=== PATIENT | male | born 1940 | race Caucasian/White ===

== ENCOUNTER → 2017-03-21 | Outpatient (CLI) | payer MEDICARE ==
[~2017-03-21] MED LIST: IOHEXOL 350 MG/ML 100ML IJ ONE; LOVA10TA54 PO; METF-372 PO; PRED-188 PO; READI-CAT 2 (BARIUM SULF)(VANILLA SMOOTHIE) 450ML ONE
[2017-03-21 09:15] VITALS: BP 113/61
[2017-03-21 10:40] VITALS: BP 125/69
[2017-03-21 12:14] LABS: Basophils # (auto) 0 uL; Basophils % (auto) 0.1 % (0.0-2.0); CONDITION Y; DEFINITIVE SEE PRINTOUT; Eosinophils # (auto) 0 uL; Eosinophils % (auto) 0.1 % (0.0-7.0); Hematocrit 37.7 % (41.0-53.0); Hemoglobin 11.9 g/dL (13.5-17.5); Lymphocytes % (auto) 8.8 % (10.0-50.0); Mean Corpuscular Hemoglobin 24.5 pg (28.0-32.0); Mean Corpuscular Hgb Conc. 31.7 g/dL (32.0-36.0); Mean Corpuscular Volume 77.2 fL (80.0-100.0); Monocytes # (auto) 0.7 uL; Monocytes % (auto) 5.8 % (0.0-12.0); Neutrophils # (auto) 9.7 uL; Neutrophils % (auto) 85.2 % (37.0-80.0); Platelet Count (auto) 374 10^3/uL (140-450); Red Cell Distribution Width 17.8 % (11.6-16.0); White Blood Cell 11.4 10^3/uL (4.4-10.8)
[2017-03-21 12:42] LABS: Albumin 2.8 g/dL (3.4-5.0); Alkaline Phosphatase 55 U/L (45-117); Anion Gap 9 (5-15); Aspartate Aminotransferase 9 U/L (15-37); BUN/Creatinine Ratio 38.4; Bilirubin, Direct < 0.1 mg/dL (0-0.2); Bilirubin, Total 0.3 mg/dL (0.2-1.0); Blood Urea Nitrogen 33 mg/dL (7-18); Calcium 8.8 mg/dL (8.5-10.1); Carbon Dioxide 24 mmol/L (21-32); Chloride 103 mmol/L (98-107); Cholesterol 157 mg/dL (< 200); GFR African American 111 mL/min; GFR Non-African American 92 mL/min; Glucose 210 mg/dL (74-106); HDL Cholesterol 52 mg/dL (40-59); LDL Cholesterol 89 mg/dL (< 100); Potassium 3.9 mmol/L (3.5-5.1); Sodium 136 mmol/L (136-145); Total Protein 6.5 g/dL (6.4-8.2); Triglycerides 117 mg/dL (< 150)
== END | disposition home or self-care (01) ==
LOC: Rad HDHVI 09:00
PROVIDERS: ATTEND Internal Medicine Cardiovascular Disease
DX: I70.0 Atherosclerosis of aorta (principal); J98.11 Atelectasis; I10 Essential (primary) hypertension; E78.00 Pure hypercholesterolemia, unspecified; K74.1 Hepatic sclerosis; E11.9 Type 2 diabetes mellitus without complications; R97.20 Elevated prostate specific antigen [PSA]; R53.81 Other malaise; E03.9 Hypothyroidism, unspecified; D64.9 Anemia, unspecified; E55.9 Vitamin D deficiency, unspecified; N39.0 Urinary tract infection, site not specified; N20.0 Calculus of kidney; N40.0 Benign prostatic hyperplasia without lower urinary tract symptoms; I31.3 Pericardial effusion (noninflammatory); Z90.49 Acquired absence of other specified parts of digestive tract
CPT/HCPCS: 36415; 74177; 80048; 80061; 80076; 82306; 82565; 83036; 84153; 84403; 84439; 84443; 85025; G0463; Q9967; 96374

== ENCOUNTER → 2017-03-23 | Outpatient (CLI) | payer MEDICARE ==
[~2017-03-23] MED LIST changes: -IOHEXOL 350 MG/ML 100ML IJ ONE; -READI-CAT 2 (BARIUM SULF)(VANILLA SMOOTHIE) 450ML ONE
[2017-03-23 11:50] LABS: Urine Bilirubin Negative (Negative); Urine Blood Negative /uL (Negative); Urine Color Yellow (Yellow); Urine Ketone Negative (Negative); Urine Nitrite Negative (Negative); Urine Urobilinogen Normal (Negative)
[2017-03-23 11:51] LABS: Urine Glucose 3+ mg/dL (Normal)
== END | disposition home or self-care (01) ==
LOC: LAB 08:39
PROVIDERS: ATTEND Internal Medicine Cardiovascular Disease
DX: Z73.3 Stress, not elsewhere classified (principal); E23.7 Disorder of pituitary gland, unspecified; E27.9 Disorder of adrenal gland, unspecified; N39.0 Urinary tract infection, site not specified
CPT/HCPCS: 81003; 82533; 87086

== ENCOUNTER → 2017-03-29 | Outpatient (CLI) | payer MEDICARE ==
[~2017-03-29] MED LIST changes: +CYANOCOBALAMIN (B-12) 1000 MCG/1 ML VIAL IM ONE; +CYANOCOBALAMIN (B-12) 1000 MCG/1 ML VIAL ONE; +MULTIPLE VIT 10 ML IV ONE; +MVI in SODIUM CHLORIDE 0.9% 1,010 ML ONE; +SODIUM CHLORIDE 0.9% 1,000 ML IVB ONE
[2017-03-29 16:47] LABS: Calcium 8.9 mg/dL (8.5-10.1); Magnesium 2.4 mg/dL (1.6-2.6); Potassium 4.1 mmol/L (3.5-5.1)
[2017-03-29 17:07] VITALS: BP 148/71
== END | disposition home or self-care (01) ==
LOC: CHF HDHVI 14:07
PROVIDERS: ATTEND Internal Medicine Cardiovascular Disease
DX: I10 Essential (primary) hypertension (principal); E83.42 Hypomagnesemia
CPT/HCPCS: 36415; 80048; 82962; 83735; 96365; 96366; 96372; G0463; J3411; J3420; J3475

== ENCOUNTER → 2017-04-12 | Outpatient (CLI) | payer MEDICARE ==
[~2017-04-12] MED LIST changes: -CYANOCOBALAMIN (B-12) 1000 MCG/1 ML VIAL IM ONE; -CYANOCOBALAMIN (B-12) 1000 MCG/1 ML VIAL ONE; -MULTIPLE VIT 10 ML IV ONE; -MVI in SODIUM CHLORIDE 0.9% 1,010 ML ONE; -SODIUM CHLORIDE 0.9% 1,000 ML IVB ONE
[2017-04-12 13:50] VITALS: BP 128/62
[2017-04-12 15:20] VITALS: BP 128/68
== END | disposition home or self-care (01) ==
LOC: CHF HDHVI 14:00
PROVIDERS: ATTEND Internal Medicine Cardiovascular Disease
DX: I95.1 Orthostatic hypotension (principal)
CPT/HCPCS: 82962; G0463

== ENCOUNTER → 2017-04-14 | Outpatient (CLI) | payer MEDICARE ==
[2017-04-14 14:00] VITALS: BP 117/63
[2017-04-14 14:30] VITALS: BP 122/66
[2017-04-14 16:58] LABS: Basophils # (auto) 0 uL; Basophils % (auto) 0.2 % (0.0-2.0); CONDITION Y; DEFINITIVE SEE PRINTOUT; Eosinophils # (auto) 0 uL; Eosinophils % (auto) 0.1 % (0.0-7.0); Hematocrit 35.4 % (41.0-53.0); Hemoglobin 11.4 g/dL (13.5-17.5); Lymphocytes % (auto) 13.6 % (10.0-50.0); Mean Corpuscular Hemoglobin 24.9 pg (28.0-32.0); Mean Corpuscular Hgb Conc. 32.2 g/dL (32.0-36.0); Mean Corpuscular Volume 77.3 fL (80.0-100.0); Mean Platelet Volume 8.2 fL (7.4-10.4); Monocytes # (auto) 0.4 uL; Monocytes % (auto) 5.7 % (0.0-12.0); Neutrophils % (auto) 80.4 % (37.0-80.0); Platelet Count (auto) 210 10^3/uL (140-450); Red Cell Distribution Width 19.1 % (11.6-16.0); White Blood Cell 7.5 10^3/uL (4.4-10.8)
[2017-04-14 17:12] LABS: Urine Bilirubin Negative (Negative); Urine Blood Negative /uL (Negative); Urine Ca Oxalate Crystal MANY (None Seen); Urine Color Yellow (Yellow); Urine Mucus FEW (None Seen); Urine Nitrite Negative (Negative); Urine RBC 2 /hpf (0 - 3); Urine Urobilinogen Normal (Negative); Urine pH 5.5 (5.0-8.0)
[2017-04-14 17:15] LABS: Potassium 3.8 mmol/L (3.5-5.1)
[2017-04-14 17:24] LABS: BUN/Creatinine Ratio 44.2; Calcium 8.4 mg/dL (8.5-10.1)
[2017-04-14 17:36] LABS: Burr Cells FEW; Ovalocytes FEW; Platelet Estimate Adequate
[2017-04-14 17:37] LABS: Anisocytosis Slight; Hypochromia Slight
[2017-04-14 17:39] LABS: Urine Glucose 2+ mg/dL (Normal); Urine Ketone 1+ (Negative)
== END | disposition home or self-care (01) ==
LOC: CHF HDHVI 13:57
PROVIDERS: ATTEND Internal Medicine Cardiovascular Disease
DX: I11.0 Hypertensive heart disease with heart failure (principal); I50.9 Heart failure, unspecified; I95.1 Orthostatic hypotension; G90.9 Disorder of the autonomic nervous system, unspecified; D64.9 Anemia, unspecified; E11.9 Type 2 diabetes mellitus without complications; R82.79 Other abnormal findings on microbiological examination of urine
CPT/HCPCS: 36415; 80048; 81001; 85025; 87086; G0463

== ENCOUNTER → 2017-05-09 | Outpatient (CLI) | payer MEDICARE ==
[2017-05-09 08:20] VITALS: BP 82/52
[2017-05-09 10:00] VITALS: BP 92/55
[2017-05-09 12:31] LABS: Basophils # (auto) 0 uL; Basophils % (auto) 0.4 % (0.0-2.0); CONDITION Y; DEFINITIVE SEE PRINTOUT; Eosinophils # (auto) 0 uL; Eosinophils % (auto) 0.3 % (0.0-7.0); Hematocrit 38.2 % (41.0-53.0); Hemoglobin 12.2 g/dL (13.5-17.5); Lymphocytes # (auto) 1.5 uL; Lymphocytes % (auto) 19.7 % (10.0-50.0); Mean Corpuscular Hemoglobin 24.9 pg (28.0-32.0); Mean Corpuscular Hgb Conc. 31.9 g/dL (32.0-36.0); Mean Corpuscular Volume 78.2 fL (80.0-100.0); Mean Platelet Volume 8.6 fL (7.4-10.4); Monocytes # (auto) 0.6 uL; Monocytes % (auto) 7.6 % (0.0-12.0); Neutrophils # (auto) 5.5 uL; Platelet Count (auto) 267 10^3/uL (140-450); Red Cell Distribution Width 19.9 % (11.6-16.0); White Blood Cell 7.7 10^3/uL (4.4-10.8)
[2017-05-09 12:51] LABS: BUN/Creatinine Ratio 25.3; Bilirubin, Total 0.4 mg/dL (0.2-1.0); Calcium 8.5 mg/dL (8.5-10.1); Potassium 3.4 mmol/L (3.5-5.1); Total Protein 6.8 g/dL (6.4-8.2)
[2017-05-09 17:32] VITALS: BP 142/71
== END | disposition home or self-care (01) ==
LOC: CHF HDHVI 08:33
PROVIDERS: ATTEND Internal Medicine Cardiovascular Disease
DX: I11.0 Hypertensive heart disease with heart failure (principal); I50.9 Heart failure, unspecified; D64.9 Anemia, unspecified; R97.20 Elevated prostate specific antigen [PSA]; I25.10 Atherosclerotic heart disease of native coronary artery without angina pectoris; E83.111 Hemochromatosis due to repeated red blood cell transfusions; R97.0 Elevated carcinoembryonic antigen [CEA]
CPT/HCPCS: 36415; 80053; 82378; 83735; 85025; G0463

== ENCOUNTER 2017-06-16 12:06 | Inpatient (IN) | payer MEDICARE ==
[~2017-06-16] VITALS: Ht 182.9 cm; Wt 62.6 kg
[~2017-06-16 12:06] MED LIST changes: -LOVA10TA54 PO
[2017-06-16] MEDS ORDERED: cloNIDine HCL 0.1 MG TAB PO ONE (13:00)
[2017-06-16 13:11] LABS: Basophils # (auto) 0.1 uL; Eosinophils # (auto) 0.1 uL; Hemoglobin 10.7 g/dL (13.5-17.5); Lymphocytes # (auto) 1.4 uL; Lymphocytes % (auto) 17.1 % (10.0-50.0); Mean Corpuscular Hemoglobin 24.8 pg (28.0-32.0); Neutrophils # (auto) 5.9 uL; White Blood Cell 8.2 10^3/uL (4.4-10.8)
[2017-06-16 13:12] LABS: Basophils % (auto) 1.3 % (0.0-2.0); Eosinophils % (auto) 1.5 % (0.0-7.0); Hematocrit 33.5 % (41.0-53.0); Mean Corpuscular Hgb Conc. 31.9 g/dL (32.0-36.0); Mean Corpuscular Volume 77.8 fL (80.0-100.0); Monocytes # (auto) 0.7 uL; Monocytes % (auto) 8.7 % (0.0-12.0); Neutrophils % (auto) 71.4 % (37.0-80.0); Nucleated Red Blood Cells % 0.1 %; Platelet Count (auto) 212 10^3/uL (140-450); Red Cell Distribution Width 17.7 % (11.8-14.3)
[2017-06-16 13:28] LABS: INR 1.03 (0.9-1.15); Partial Thromboplastin Time 21.6 sec (22.64-33.71); Prothrombin Time 11.2 sec (9.37-12.3)
[2017-06-16 13:33] LABS: Bilirubin, Total 0.4 mg/dL (0.2-1.0); Calcium 8.1 mg/dL (8.5-10.1); Magnesium 2.1 mg/dL (1.6-2.6); Potassium 3.4 mmol/L (3.5-5.1); Total Protein 6.6 g/dL (6.4-8.2)
[2017-06-16] MEDS ORDERED: LABETALOL HCL 5 MG/ML 4ML SYRINGE IV PRN (13:45)
[2017-06-16] MEDS ORDERED: SODIUM CHLORIDE 0.9% 1,000 ML IV SCH (13:45)
[2017-06-16] MEDS ORDERED: CLOPIDOGREL BISULFATE 75 MG TAB PO ONE (13:45)
[2017-06-16 14:37] LABS: Cholesterol 176 mg/dL (< 200); HDL Cholesterol 34 mg/dL (40-59); LDL Cholesterol 136 mg/dL (< 100); Triglycerides 117 mg/dL (< 150)
[2017-06-16] MEDS ORDERED: LORazepam 2MG/ML-1ML VIAL IV ONE ×2 (15:35→15:45)
[2017-06-16] MEDS ORDERED: LORazepam 2MG/ML-1ML VIAL ONE (15:35)
[2017-06-16] MEDS ORDERED: NITROGLYCERIN 0.4 MG SL TAB SL PRN (16:30)
[2017-06-16] MEDS ORDERED: DEXTROSE (50%) 50ML SYRG IV PRN (16:30)
[2017-06-16] MEDS ORDERED: MORPHINE SULF INJ 2 MG/ML SYRINGE 1ML IV PRN (16:30)
[2017-06-16] MEDS ORDERED: ASPirin 81 mg TAB PO ONE (16:45)
[2017-06-16] MEDS: metFORMIN HYDROCHLORIDE 500 MG TAB PO SCH (17:45)
[2017-06-16] MEDS: InsuLIN REG 1unit/0.01ml Soln (100units/ml) SC SCH ×2 (17:45→21:44)
[2017-06-16] MEDS: ACCU-CHEK COMFORT CURVE STRIP VI SCH ×2 (17:45→21:44)
[2017-06-16 18:06] LABS: Temperature: 22.4 C (20.0-25.0)
[2017-06-16 20:15] VITALS: BP 130/74
[2017-06-16] MEDS: ATORVASTATIN 20 MG TAB PO SCH (21:44)
[2017-06-16 22:00] VITALS: BP 130/74
[2017-06-17] MEDS ORDERED: CLOP75TA28 PO (01:47)
[2017-06-17 04:55] VITALS: BP 144/81
[2017-06-17] MEDS: InsuLIN REG 1unit/0.01ml Soln (100units/ml) SC SCH ×4 (06:08→22:40)
[2017-06-17] MEDS: ACCU-CHEK COMFORT CURVE STRIP VI SCH ×4 (06:08→22:40)
[2017-06-17] MEDS: metFORMIN HYDROCHLORIDE 500 MG TAB PO SCH ×2 (07:00→17:11)
[2017-06-17 09:00] VITALS: BP 161/85
[2017-06-17] MEDS: CLOPIDOGREL BISULFATE 75 MG TAB PO SCH ×2 (10:00→10:30)
[2017-06-17] MEDS: ASPirin 81 mg TAB PO SCH (10:30)
[2017-06-17 12:50] VITALS: BP 133/86
[2017-06-17 16:39] VITALS: BP 126/68
[2017-06-17 20:37] VITALS: BP 143/78
[2017-06-17] MEDS: ATORVASTATIN 20 MG TAB PO SCH (22:42)
[2017-06-18 04:31] VITALS: BP 137/65
[2017-06-18] MEDS: InsuLIN REG 1unit/0.01ml Soln (100units/ml) SC SCH ×4 (06:24→22:35)
[2017-06-18] MEDS: ACCU-CHEK COMFORT CURVE STRIP VI SCH ×4 (06:24→22:35)
[2017-06-18] MEDS: metFORMIN HYDROCHLORIDE 500 MG TAB PO SCH ×2 (06:25→16:51)
[2017-06-18 06:43] LABS: Basophils # (auto) 0.1 uL; Basophils % (auto) 0.7 % (0.0-2.0); Eosinophils # (auto) 0.2 uL; Eosinophils % (auto) 2.2 % (0.0-7.0); Hematocrit 34.8 % (41.0-53.0); Hemoglobin 11.1 g/dL (13.5-17.5); Lymphocytes # (auto) 1.3 uL; Lymphocytes % (auto) 18.2 % (10.0-50.0); Mean Corpuscular Hemoglobin 24.9 pg (28.0-32.0); Mean Corpuscular Hgb Conc. 31.9 g/dL (32.0-36.0); Mean Corpuscular Volume 78.2 fL (80.0-100.0); Monocytes # (auto) 0.8 uL; Monocytes % (auto) 11.3 % (0.0-12.0); Neutrophils % (auto) 67.6 % (37.0-80.0); Platelet Count (auto) 215 10^3/uL (140-450); Red Cell Distribution Width 17.7 % (11.8-14.3); White Blood Cell 7.3 10^3/uL (4.4-10.8)
[2017-06-18 07:05] LABS: Albumin 2.7 g/dL (3.4-5.0); Potassium 3.6 mmol/L (3.5-5.1)
[2017-06-18 07:07] LABS: BUN/Creatinine Ratio 18.2
[2017-06-18 07:10] LABS: Bilirubin, Total 0.5 mg/dL (0.2-1.0); Total Protein 6.5 g/dL (6.4-8.2)
[2017-06-18 09:00] VITALS: BP 142/65
[2017-06-18] MEDS: CLOPIDOGREL BISULFATE 75 MG TAB PO SCH ×2 (10:00→10:19)
[2017-06-18] MEDS: ASPirin 81 mg TAB PO SCH (10:19)
[2017-06-18] MEDS: FLUDROCORTISONE ACETATE 0.1 MG TAB PO SCH (12:07)
[2017-06-18 13:00] VITALS: BP 140/76
[2017-06-18 17:00] VITALS: BP 140/80
[2017-06-18 22:00] VITALS: BP 138/66
[2017-06-18] MEDS: ATORVASTATIN 20 MG TAB PO SCH (22:34)
[2017-06-19 04:33] VITALS: BP 134/66
[2017-06-19] MEDS: InsuLIN REG 1unit/0.01ml Soln (100units/ml) SC SCH ×4 (06:32→21:55)
[2017-06-19] MEDS: metFORMIN HYDROCHLORIDE 500 MG TAB PO SCH ×2 (06:32→18:00)
[2017-06-19] MEDS: ACCU-CHEK COMFORT CURVE STRIP VI SCH ×4 (06:32→21:55)
[2017-06-19 09:00] VITALS: BP 148/85
[2017-06-19] MEDS: ASPirin 81 mg TAB PO SCH (10:24)
[2017-06-19] MEDS: FLUDROCORTISONE ACETATE 0.1 MG TAB PO SCH (10:25)
[2017-06-19] MEDS: CLOPIDOGREL BISULFATE 75 MG TAB PO SCH (10:28)
[2017-06-19 13:00] VITALS: BP 124/60
[2017-06-19 17:00] VITALS: BP 129/77
[2017-06-19 22:00] VITALS: BP 117/61
[2017-06-19] MEDS: ATORVASTATIN 20 MG TAB PO SCH (22:06)
[2017-06-20 05:16] VITALS: BP 117/65
[2017-06-20] MEDS: metFORMIN HYDROCHLORIDE 500 MG TAB PO SCH (06:44)
[2017-06-20] MEDS: InsuLIN REG 1unit/0.01ml Soln (100units/ml) SC SCH ×2 (06:45→11:30)
[2017-06-20] MEDS: ACCU-CHEK COMFORT CURVE STRIP VI SCH ×2 (06:48→11:30)
[2017-06-20 08:18] VITALS: BP 133/66
[2017-06-20] MEDS: ASPirin 81 mg TAB PO SCH (10:17)
[2017-06-20] MEDS: CLOPIDOGREL BISULFATE 75 MG TAB PO SCH (10:17)
[2017-06-20] MEDS: FLUDROCORTISONE ACETATE 0.1 MG TAB PO SCH (10:17)
[2017-06-20 11:56] VITALS: BP 122/74
== END 2017-06-20 17:23 | disposition home health service (06) | DRG 64 ==
LOC: EDBD 12:06 → ER 12:06 → TELE 12:07 → TELE-CENTR 20:00 → CENTRAL 06-20 07:20
PROVIDERS: ADMIT Internal Medicine Cardiovascular Disease; ATTEND Internal Medicine Cardiovascular Disease
DX: I63.9 Cerebral infarction, unspecified (principal); E43 Unspecified severe protein-calorie malnutrition; G81.94 Hemiplegia, unspecified affecting left nondominant side; I95.1 Orthostatic hypotension
CPT/HCPCS: 36415; 70450; 70551; 71010; 80053; 80061; 82607; 82746; 82962; 83735; 84439; 84443; 85025; 85610; 85730; 87081; 93005; 93306; 93886; 96360; 96361; 97116; 97163; 97530; 99291; J1815

== ENCOUNTER 2017-06-27 11:35 | Inpatient (IN) | payer MEDICARE ==
[~2017-06-27] VITALS: Ht 182.9 cm; Wt 59.3 kg
[~2017-06-27 11:35] MED LIST changes: +CLOP75TA28 PO
[2017-06-27] MEDS ORDERED: SODIUM CHLORIDE 0.9% 1,000 ML IVB ONE (12:35)
[2017-06-27 13:14] LABS: Basophils # (auto) 0.1 uL; Eosinophils # (auto) 0.2 uL; Eosinophils % (auto) 2.4 % (0.0-7.0); Hemoglobin 11.3 g/dL (13.5-17.5); Lymphocytes # (auto) 1.2 uL; Monocytes # (auto) 0.7 uL; Nucleated Red Blood Cells % 0.1 %; White Blood Cell 7.3 10^3/uL (4.4-10.8)
[2017-06-27 13:17] LABS: Basophils % (auto) 0.8 % (0.0-2.0); Hematocrit 35.6 % (41.0-53.0); Lymphocytes % (auto) 16.4 % (10.0-50.0); Mean Corpuscular Hemoglobin 24.8 pg (28.0-32.0); Mean Corpuscular Hgb Conc. 31.7 g/dL (32.0-36.0); Mean Corpuscular Volume 78.3 fL (80.0-100.0); Neutrophils # (auto) 5.2 uL; Neutrophils % (auto) 71.4 % (37.0-80.0); Platelet Count (auto) 258 10^3/uL (140-450); Red Blood Cells 4.55 10^6/uL (4.5-5.90); Red Cell Distribution Width 16.9 % (11.8-14.3)
[2017-06-27 13:32] LABS: Alanine Aminotransferase 13 U/L (16-61); Albumin 3.1 g/dL (3.4-5.0); Alkaline Phosphatase 81 U/L (45-117); Anion Gap 10 (5-15); Aspartate Aminotransferase 11 U/L (15-37); BUN/Creatinine Ratio 27.3; Bilirubin, Total 0.5 mg/dL (0.2-1.0); Blood Urea Nitrogen 18 mg/dL (7-18); Calcium 8.2 mg/dL (8.5-10.1); Carbon Dioxide 21 mmol/L (21-32); Chloride 109 mmol/L (98-107); GFR African American 151 mL/min; GFR Non-African American 124 mL/min; Glucose 85 mg/dL (74-106); Magnesium 2.2 mg/dL (1.6-2.6); Sodium 140 mmol/L (136-145); Total Protein 7.4 g/dL (6.4-8.2)
[2017-06-27] MEDS ORDERED: NITROGLYCERIN 0.4 MG SL TAB SL PRN (14:15)
[2017-06-27] MEDS ORDERED: HYDROcodone-ACET 5/325MG TAB PO PRN (14:15)
[2017-06-27] MEDS ORDERED: MORPHINE SULFATE 10 MG/ML INJ 1ML SDV IV PRN ×2 (14:15)
[2017-06-27] MEDS ORDERED: ONDANSETRON HCL 4 MG/2 ML VIAL IV PRN (14:15)
[2017-06-27] MEDS ORDERED: DEXTROSE (50%) 50ML SYRG IV PRN (14:15)
[2017-06-27] MEDS: SODIUM CHLORIDE 0.9% 1,000 ML IV SCH (14:46)
[2017-06-27] MEDS: InsuLIN REG 1unit/0.01ml Soln (100units/ml) SC SCH ×2 (17:00→21:52)
[2017-06-27] MEDS: ACCU-CHEK COMFORT CURVE STRIP VI SCH ×2 (17:00→21:53)
[2017-06-27 17:32] VITALS: BP 154/75
[2017-06-27 20:00] VITALS: BP 122/57
[2017-06-27 22:00] VITALS: BP 122/57
[2017-06-28 05:00] VITALS: BP 123/65
[2017-06-28] MEDS: SODIUM CHLORIDE 0.9% 1,000 ML IV SCH ×2 (05:07→16:55)
[2017-06-28 06:14] LABS: Basophils # (auto) 0.1 uL; Eosinophils # (auto) 0.2 uL; Mean Corpuscular Volume 77.5 fL (80.0-100.0); Neutrophils # (auto) 3.7 uL
[2017-06-28 06:17] LABS: Basophils % (auto) 1.2 % (0.0-2.0); Eosinophils % (auto) 3.2 % (0.0-7.0); Hematocrit 34.4 % (41.0-53.0); Lymphocytes # (auto) 1.1 uL; Lymphocytes % (auto) 19.1 % (10.0-50.0); Mean Corpuscular Hemoglobin 24.8 pg (28.0-32.0); Monocytes # (auto) 0.8 uL; Monocytes % (auto) 13.1 % (0.0-12.0); Neutrophils % (auto) 63.4 % (37.0-80.0); Nucleated Red Blood Cells % 0.2 %; Platelet Count (auto) 260 10^3/uL (140-450); Red Blood Cells 4.44 10^6/uL (4.5-5.90); Red Cell Distribution Width 17.1 % (11.8-14.3); White Blood Cell 5.8 10^3/uL (4.4-10.8)
[2017-06-28 06:26] LABS: Potassium 3.9 mmol/L (3.5-5.1)
[2017-06-28 06:30] LABS: BUN/Creatinine Ratio 29.3
[2017-06-28] MEDS: InsuLIN REG 1unit/0.01ml Soln (100units/ml) SC SCH ×4 (06:49→22:00)
[2017-06-28] MEDS: ACCU-CHEK COMFORT CURVE STRIP VI SCH ×4 (06:49→22:27)
[2017-06-28 08:00] VITALS: BP 155/89
[2017-06-28 09:00] VITALS: BP 155/89
[2017-06-28] MEDS: predniSONE 20 MG TAB PO SCH (09:30)
[2017-06-28] MEDS: CLOPIDOGREL BISULFATE 75 MG TAB PO SCH (09:31)
[2017-06-28] MEDS: FLUDROCORTISONE ACETATE 0.1 MG TAB PO SCH (09:31)
[2017-06-28 13:00] VITALS: BP 152/83
[2017-06-28 17:00] VITALS: BP 136/74
[2017-06-28 17:59] LABS: Urine Bacteria NONE SEEN /hpf (None Seen); Urine Blood Negative /uL (Negative); Urine Mucus FEW (None Seen); Urine WBC 1 /hpf (0 - 3)
[2017-06-28] MEDS: HALOPERIDOL LACTATE 5 MG/ML INJ VIAL IM PRN (22:27)
[2017-06-29] MEDS ORDERED: diphenhdrAMINE HCL 50 MG/1 ML VL IM ONE (03:00)
[2017-06-29] MEDS ORDERED: LORazepam 2MG/ML-1ML VIAL IM ONE (03:00)
[2017-06-29 05:39] VITALS: BP 126/66
[2017-06-29] MEDS: InsuLIN REG 1unit/0.01ml Soln (100units/ml) SC SCH ×4 (07:00→22:08)
[2017-06-29] MEDS: ACCU-CHEK COMFORT CURVE STRIP VI SCH ×4 (07:00→22:08)
[2017-06-29 08:00] VITALS: BP 126/66
[2017-06-29] MEDS: SODIUM CHLORIDE 0.9% 1,000 ML IV SCH ×2 (08:00→19:35)
[2017-06-29 09:00] VITALS: BP 110/62
[2017-06-29] MEDS: CLOPIDOGREL BISULFATE 75 MG TAB PO SCH (10:18)
[2017-06-29] MEDS: predniSONE 20 MG TAB PO SCH (10:18)
[2017-06-29] MEDS: FLUDROCORTISONE ACETATE 0.1 MG TAB PO SCH (10:18)
[2017-06-29 13:00] VITALS: BP 164/80
[2017-06-29] MEDS ORDERED: DEXAMETHASONE 4 MG TAB PO ONE (15:00)
[2017-06-29 17:00] VITALS: BP 133/63
[2017-06-29] MEDS: Boost Glucose Control 8 Ounces PO SCH (18:00)
[2017-06-29] MEDS: DEXAMETHASONE 0.5MG/5ML ORAL ELIX PO SCH (19:01)
[2017-06-29 21:43] VITALS: BP 123/56
[2017-06-30 05:29] VITALS: BP 127/69
[2017-06-30] MEDS: ACCU-CHEK COMFORT CURVE STRIP VI SCH ×4 (06:31→22:11)
[2017-06-30] MEDS: InsuLIN REG 1unit/0.01ml Soln (100units/ml) SC SCH ×4 (06:32→22:00)
[2017-06-30] MEDS: DEXAMETHASONE 0.5MG/5ML ORAL ELIX PO SCH ×2 (08:00→18:00)
[2017-06-30 08:54] VITALS: BP 141/72
[2017-06-30] MEDS: SODIUM CHLORIDE 0.9% 1,000 ML IV SCH ×2 (08:55→22:11)
[2017-06-30] MEDS: CLOPIDOGREL BISULFATE 75 MG TAB PO SCH (09:39)
[2017-06-30] MEDS: predniSONE 20 MG TAB PO SCH (09:40)
[2017-06-30] MEDS: FLUDROCORTISONE ACETATE 0.1 MG TAB PO SCH (09:40)
[2017-06-30] MEDS: Boost Glucose Control 8 Ounces PO SCH ×2 (10:38→18:00)
[2017-06-30 13:24] VITALS: BP 133/65
[2017-06-30 16:38] VITALS: BP 140/67
[2017-06-30] MEDS: HALOPERIDOL LACTATE 5 MG/ML INJ VIAL IM PRN (17:12)
[2017-06-30 22:28] VITALS: BP 127/71
[2017-07-01 04:00] VITALS: BP 123/76
[2017-07-01] MEDS: ACCU-CHEK COMFORT CURVE STRIP VI SCH ×4 (06:39→21:12)
[2017-07-01] MEDS: InsuLIN REG 1unit/0.01ml Soln (100units/ml) SC SCH ×4 (06:39→21:55)
[2017-07-01] MEDS: DEXAMETHASONE 0.5MG/5ML ORAL ELIX PO SCH ×2 (08:25→17:45)
[2017-07-01] MEDS: Boost Glucose Control 8 Ounces PO SCH ×2 (08:25→17:45)
[2017-07-01 09:00] VITALS: BP 145/82
[2017-07-01] MEDS: FLUDROCORTISONE ACETATE 0.1 MG TAB PO SCH (10:51)
[2017-07-01] MEDS: CLOPIDOGREL BISULFATE 75 MG TAB PO SCH (10:51)
[2017-07-01] MEDS: predniSONE 20 MG TAB PO SCH (10:51)
[2017-07-01] MEDS: SODIUM CHLORIDE 0.9% 1,000 ML IV SCH (11:35)
[2017-07-01 13:00] VITALS: BP 121/64
[2017-07-01 16:35] VITALS: BP 125/70
[2017-07-01] MEDS: HALOPERIDOL LACTATE 5 MG/ML INJ VIAL IM PRN (21:06)
[2017-07-01 22:00] VITALS: BP 135/71
[2017-07-02] MEDS: SODIUM CHLORIDE 0.9% 1,000 ML IV SCH ×2 (00:55→14:05)
[2017-07-02 05:00] VITALS: BP 149/87
[2017-07-02] MEDS: InsuLIN REG 1unit/0.01ml Soln (100units/ml) SC SCH ×4 (05:22→21:24)
[2017-07-02] MEDS: ACCU-CHEK COMFORT CURVE STRIP VI SCH ×4 (05:22→21:24)
[2017-07-02 08:00] VITALS: BP 146/64
[2017-07-02] MEDS: Boost Glucose Control 8 Ounces PO SCH ×2 (08:00→18:08)
[2017-07-02 08:30] VITALS: BP 150/83
[2017-07-02] MEDS: CLOPIDOGREL BISULFATE 75 MG TAB PO SCH (11:39)
[2017-07-02] MEDS: FLUDROCORTISONE ACETATE 0.1 MG TAB PO SCH (11:39)
[2017-07-02] MEDS: predniSONE 20 MG TAB PO SCH (11:39)
[2017-07-02] MEDS: DEXAMETHASONE 0.5MG/5ML ORAL ELIX PO SCH ×2 (11:40→18:00)
[2017-07-02 12:30] VITALS: BP 142/84
[2017-07-02 17:00] VITALS: BP 144/99
[2017-07-02 21:54] VITALS: BP 145/90
[2017-07-02 21:57] LABS: Urine Bacteria NONE SEEN /hpf (None Seen); Urine Blood Negative /uL (Negative); Urine Mucus FEW (None Seen); Urine Specific Gravity 1.035 (1.001-1.035); Urine WBC 2 /hpf (0 - 3)
[2017-07-03] MEDS: SODIUM CHLORIDE 0.9% 1,000 ML IV SCH ×2 (03:35→16:55)
[2017-07-03] MEDS: HALOPERIDOL LACTATE 5 MG/ML INJ VIAL IM PRN (03:40)
[2017-07-03 05:00] VITALS: BP 152/84
[2017-07-03] MEDS: ACCU-CHEK COMFORT CURVE STRIP VI SCH ×4 (06:00→22:00)
[2017-07-03] MEDS: InsuLIN REG 1unit/0.01ml Soln (100units/ml) SC SCH ×4 (06:00→22:00)
[2017-07-03 06:30] LABS: Basophils # (auto) 0 uL; Eosinophils # (auto) 0 uL; Eosinophils % (auto) 0.3 % (0.0-7.0); Hemoglobin 10.7 g/dL (13.5-17.5); Mean Corpuscular Hemoglobin 24.5 pg (28.0-32.0); Monocytes # (auto) 0.8 uL; Neutrophils # (auto) 5.6 uL
[2017-07-03 06:34] LABS: Basophils % (auto) 0.5 % (0.0-2.0); Hematocrit 33.3 % (41.0-53.0); Lymphocytes # (auto) 1.5 uL; Lymphocytes % (auto) 18.4 % (10.0-50.0); Mean Corpuscular Volume 76.3 fL (80.0-100.0); Monocytes % (auto) 10.1 % (0.0-12.0); Neutrophils % (auto) 70.7 % (37.0-80.0); Platelet Count (auto) 328 10^3/uL (140-450); Red Blood Cells 4.36 10^6/uL (4.5-5.90); Red Cell Distribution Width 16.9 % (11.8-14.3)
[2017-07-03 07:02] LABS: Albumin 2.8 g/dL (3.4-5.0); Bilirubin, Total 0.6 mg/dL (0.2-1.0); Calcium 8.4 mg/dL (8.5-10.1); Potassium 3.3 mmol/L (3.5-5.1); Total Protein 6.9 g/dL (6.4-8.2)
[2017-07-03] MEDS: Boost Glucose Control 8 Ounces PO SCH ×2 (08:29→17:24)
[2017-07-03] MEDS: DEXAMETHASONE 0.5MG/5ML ORAL ELIX PO SCH ×2 (08:29→17:24)
[2017-07-03 09:00] VITALS: BP_SYST 132; BP_SYST 153; BP_DIAS 67; BP_DIAS 99
[2017-07-03] MEDS: CLOPIDOGREL BISULFATE 75 MG TAB PO SCH (09:45)
[2017-07-03] MEDS: predniSONE 20 MG TAB PO SCH (09:45)
[2017-07-03] MEDS: FLUDROCORTISONE ACETATE 0.1 MG TAB PO SCH (09:46)
[2017-07-03] MEDS ORDERED: GADOPENTETATE DIMEGLUMINE (10MMOL/20 ML) VIAL IV ONE (11:15)
[2017-07-03 21:30] VITALS: BP 150/91
[2017-07-04] MEDS: HALOPERIDOL LACTATE 5 MG/ML INJ VIAL IM PRN (01:42)
[2017-07-04] MEDS: SODIUM CHLORIDE 0.9% 1,000 ML IV SCH ×2 (02:48→19:35)
[2017-07-04 05:00] VITALS: BP 147/85
[2017-07-04] MEDS: InsuLIN REG 1unit/0.01ml Soln (100units/ml) SC SCH ×4 (06:22→22:00)
[2017-07-04] MEDS: ACCU-CHEK COMFORT CURVE STRIP VI SCH ×4 (06:22→22:23)
[2017-07-04 08:00] VITALS: BP 155/91
[2017-07-04] MEDS: Boost Glucose Control 8 Ounces PO SCH ×2 (08:19→17:46)
[2017-07-04] MEDS: DEXAMETHASONE 0.5MG/5ML ORAL ELIX PO SCH ×2 (08:44→17:46)
[2017-07-04 09:00] VITALS: BP 155/91
[2017-07-04] MEDS: FLUDROCORTISONE ACETATE 0.1 MG TAB PO SCH (10:25)
[2017-07-04] MEDS: predniSONE 20 MG TAB PO SCH (10:26)
[2017-07-04] MEDS: CLOPIDOGREL BISULFATE 75 MG TAB PO SCH (10:26)
[2017-07-04 12:48] VITALS: BP 141/75
[2017-07-04 16:51] VITALS: BP 147/86
[2017-07-04 22:00] VITALS: BP 139/78
[2017-07-05 05:00] VITALS: BP 154/80
[2017-07-05] MEDS: ACCU-CHEK COMFORT CURVE STRIP VI SCH ×4 (06:42→22:00)
[2017-07-05] MEDS: InsuLIN REG 1unit/0.01ml Soln (100units/ml) SC SCH ×4 (06:42→22:00)
[2017-07-05] MEDS: SODIUM CHLORIDE 0.9% 1,000 ML IV SCH ×2 (08:55→22:15)
[2017-07-05 09:00] VITALS: BP 121/70
[2017-07-05] MEDS: predniSONE 20 MG TAB PO SCH (09:02)
[2017-07-05] MEDS: CLOPIDOGREL BISULFATE 75 MG TAB PO SCH (09:02)
[2017-07-05] MEDS: FLUDROCORTISONE ACETATE 0.1 MG TAB PO SCH (09:02)
[2017-07-05] MEDS: DEXAMETHASONE 0.5MG/5ML ORAL ELIX PO SCH ×2 (09:03→17:25)
[2017-07-05] MEDS: Boost Glucose Control 8 Ounces PO SCH ×2 (09:03→18:11)
[2017-07-05 13:00] VITALS: BP 120/76
[2017-07-05 18:09] VITALS: BP 141/77
[2017-07-05 21:45] VITALS: BP 126/60
[2017-07-06] VITALS (7 sets, daily range): BP systolic 123–155; BP diastolic 63–94
[2017-07-06] MEDS: ACCU-CHEK COMFORT CURVE STRIP VI SCH ×4 (06:16→22:00)
[2017-07-06] MEDS: InsuLIN REG 1unit/0.01ml Soln (100units/ml) SC SCH ×4 (06:20→22:00)
[2017-07-06] MEDS: DEXAMETHASONE 0.5MG/5ML ORAL ELIX PO SCH ×2 (08:53→17:36)
[2017-07-06] MEDS: Boost Glucose Control 8 Ounces PO SCH ×2 (08:53→17:36)
[2017-07-06] MEDS: FLUDROCORTISONE ACETATE 0.1 MG TAB PO SCH (08:53)
[2017-07-06] MEDS: CLOPIDOGREL BISULFATE 75 MG TAB PO SCH (08:53)
[2017-07-06] MEDS: predniSONE 20 MG TAB PO SCH (08:53)
[2017-07-06] MEDS: SODIUM CHLORIDE 0.9% 1,000 ML IV SCH (11:26)
[2017-07-07] MEDS: SODIUM CHLORIDE 0.9% 1,000 ML IV SCH ×2 (00:55→13:54)
[2017-07-07 06:00] VITALS: BP 153/78
[2017-07-07] MEDS: InsuLIN REG 1unit/0.01ml Soln (100units/ml) SC SCH ×2 (06:37→11:38)
[2017-07-07] MEDS: ACCU-CHEK COMFORT CURVE STRIP VI SCH ×2 (06:37→11:06)
[2017-07-07] MEDS: Boost Glucose Control 8 Ounces PO SCH (07:46)
[2017-07-07 08:00] VITALS: BP 141/78
[2017-07-07] MEDS: DEXAMETHASONE 0.5MG/5ML ORAL ELIX PO SCH (08:06)
[2017-07-07 09:00] VITALS: BP 141/78
[2017-07-07] MEDS: predniSONE 20 MG TAB PO SCH (09:26)
[2017-07-07] MEDS: FLUDROCORTISONE ACETATE 0.1 MG TAB PO SCH (09:26)
[2017-07-07] MEDS: CLOPIDOGREL BISULFATE 75 MG TAB PO SCH (09:26)
[2017-07-07 12:00] VITALS: BP 128/72
== END 2017-07-07 15:25 | DRG 56 ==
LOC: EDBD 11:35 → ER 11:35 → TELE 11:36 → TELE-EAST 16:50 → TELE-E-ADS 17:05 → TELE-EAST 18:17 → EAST 07-02 02:22 → WEST WING 07-06 09:55
PROVIDERS: ADMIT Internal Medicine; ATTEND Internal Medicine Cardiovascular Disease
DX: G12.21 Amyotrophic lateral sclerosis (principal); E43 Unspecified severe protein-calorie malnutrition; G93.41 Metabolic encephalopathy; G45.9 Transient cerebral ischemic attack, unspecified; E11.9 Type 2 diabetes mellitus without complications; D50.9 Iron deficiency anemia, unspecified; K50.90 Crohn's disease, unspecified, without complications; Z68.1 Body mass index [BMI] 19.9 or less, adult; W18.39XA Other fall on same level, initial encounter; D64.9 Anemia, unspecified; D32.9 Benign neoplasm of meninges, unspecified; F03.90 Unspecified dementia, unspecified severity, without behavioral disturbance, psychotic disturbance, mood disturbance, and anxiety; I95.1 Orthostatic hypotension; I67.2 Cerebral atherosclerosis; E78.5 Hyperlipidemia, unspecified; D32.0 Benign neoplasm of cerebral meninges; I10 Essential (primary) hypertension; Z66 Do not resuscitate; R26.9 Unspecified abnormalities of gait and mobility; I25.10 Atherosclerotic heart disease of native coronary artery without angina pectoris; R29.6 Repeated falls; R62.7 Adult failure to thrive; Z80.1 Family history of malignant neoplasm of trachea, bronchus and lung; Z80.42 Family history of malignant neoplasm of prostate; Z82.49 Family history of ischemic heart disease and other diseases of the circulatory system; Z85.118 Personal history of other malignant neoplasm of bronchus and lung; Z95.5 Presence of coronary angioplasty implant and graft; Z90.49 Acquired absence of other specified parts of digestive tract; Z88.0 Allergy status to penicillin; Z79.899 Other long term (current) drug therapy; Y93.89 Activity, other specified; Y92.89 Other specified places as the place of occurrence of the external cause; Y99.8 Other external cause status
CPT/HCPCS: 36415; 70450; 70553; 71010; 80048; 80053; 81001; 82533; 82550; 82962; 83605; 83735; 84443; 84484; 85025; 85652; 86225; 86235; 87040; 87081; 93005; 95819; 96360; 97110; 97116; 97163; 97530; A4565; J1815